=== PATIENT | male | born 1955 ===

== ENCOUNTER 2024-07-19 09:08 | Outpatient (CLI) | payer OTHER | END 2024-07-19 09:09 | disposition home or self-care (01) | LOC: MRI 09:08 | PROVIDERS: ATTEND Psychiatry & Neurology Neurology | DX: M48.061 Spinal stenosis, lumbar region without neurogenic claudication (principal); M47.816 Spondylosis without myelopathy or radiculopathy, lumbar region; Q63.1 Lobulated, fused and horseshoe kidney | CPT/HCPCS: 72148 ==